=== PATIENT | male | born 2000 | race Two or more races ===

== ENCOUNTER 2025-02-16 02:22 | Emergency (ER) | payer OTHER ==
[~2025-02-16] VITALS: Ht 170.2 cm; Wt 61.0 kg
[2025-02-16 02:40] VITALS: TEMP 98.1
[2025-02-16] MEDS: LIDOCAINE 1% 10 ML VIAL ID ONE (03:00)
[2025-02-16] MEDS: IBUPROFEN 400 MG TABLET PO ONE (03:45)
[2025-02-16] MEDS: ACETAMINOPHEN 500 MG TABLET PO ONE (03:45)
[2025-02-16 06:00] VITALS: BP 129/77; PULSE 89; RESP 18; O2SAT 98
== END 2025-02-16 06:53 | disposition home or self-care (01) ==
LOC: EMS 02:24
DX: S61.411A Laceration without foreign body of right hand, initial encounter (principal); X58.XXXA Exposure to other specified factors, initial encounter; Y93.89 Activity, other specified; Y92.89 Other specified places as the place of occurrence of the external cause; Y99.8 Other external cause status
CPT/HCPCS: 99283; 12002; J3490